=== PATIENT | male | born 1980 | race Caucasian/White ===

== ENCOUNTER 2017-07-15 17:29 | Emergency (ER) | payer MEDICAID, SELFPAY ==
[2017-07-15 17:29] VITALS: BP 138/90; PULSE 105; RESP 18; TEMP 37.2; O2SAT 99; BMI 29.5
--- NOTE | 2017-07-15 17:43 | CT_ITS ---
STUDY: CT BRAIN WITHOUT CONTRAST REASON FOR EXAM: Male, 36 years old. Dizziness RADIATION DOSAGE (If Supplied By Facility): CTDIvol = ( 44.99 ) mGy, DLP = ( 779.24 ) mGycm TECHNIQUE: Transaxial CT imaging of the brain was performed without administration of intravenous contrast material. Individualized dose optimization techniques were used for this CT. COMPARISON: None. FINDINGS: Normal soft tissue structures. Normal calvarium. There is mild cerebral atrophy with widening of the extra-axial spaces and ventricular dilatation. There are areas of decreased attenuation within the white matter tracts of the supratentorial brain, consistent with microvascular disease changes. Normal basal ganglia and thalami. Normal brainstem. Normal cerebellum. There is no intracranial hemorrhage. There are no findings of an acute ischemic infarction. Normal visualized paranasal sinuses. CT/Brain/Head without Contrast IMPRESSION: Chronic involutional changes of the brain. No hemorrhage. Electronically Signed: Cl Cifuentes MD at 18:39 EDT , Service support ,
--- NOTE | 2017-07-15 17:44 | EKG12_ITS ---
Test Reason : DIZZINESS Blood Pressure : / mmHG Vent. Rate : 082 BPM Atrial Rate : 082 BPM P-R Int : 152 ms QRS Dur : 098 ms QT Int : 362 ms P-R-T Axes : 029 082 054 degrees QTc Int : 422 ms Normal sinus rhythm Poor R wave progression Confirmed by DEENA NORRIS, CORNELL ([id number]), graphic editor LEE RG ([id number]) on 07/19/2017 10:24:05 AM Referred By: NARENDRA Confirmed By:CORNELL SHAFFER MD
--- NOTE | 2017-07-15 17:45 | ED.DCSUM_ITS ---
- ER Visit Summary Date of Service: 07/15/17 Chief Complaint: Dizziness History of Present Illness: The patient is a 36 M resents to the emergency department with 1 month of intermittent dizziness. The patient describes the sensation of motion and near syncope. He states it is worse in the morning and then after he eats lunch. He states that he has tried to adjust his diet but it does not seem to change. He has been working outside a lot and feels made this may be contributing to it. He has had some increased urination at night, but denies any increased thirst or visual change. The patient does have a history of SVT was ablated at 11 years old. He states at times, he will be having some palpitations but does not feel like his heart is racing. He denies being short of breath. He has had no fevers or chills. He denies weight loss or night sweats. Physical Examination: Vital signs reviewed General: Well-nourished, well-developed Head: Normocephalic, atraumatic Eyes: Pupils equal and reactive, extraocular muscles intact Neck, supple, no lymphadenopathy Heart: Regular rate and rhythm Respiratory: No distress, clear bilaterally Abdomen: Soft, nontender, nondistended, no peritoneal signs Back: Nontender Extremities: Nontender, no edema, no cords Skin: Normal color no rash Neuro: Alert and oriented, no focal or lateralizing deficits Test Results: [] Emergency Department Course and Treatment: Presents with intermittent dizziness. He has a normal neurologic examination. He has no ataxia. His normal gait. With his history of prior SVT, I did obtain an EKG. There is no WPW, prolonged QT, or arrhythmia. Screening labs are unremarkable. Head CT shows chronic change, but no acute or normalities. In review of the patient, he states that he was told when he was in [facility] a year ago that he may have sleep apnea. This may be contributing to this. At this time, I do not see a dangerous cause. I do feel the patient is safe for outpatient therapy. He will be given new PCP to follow-up with. The patient be discharged home. Treatment Plan: [] Disposition: Charge Impression: 1. Dizziness 2. Near syncope This note was generated with [employer] software. It may contain incorrect words, spelling, and punctuation that were not noted in review of the chart prior to signing ED Disposition - Plan for ED Patient: Chief Complaint: Dizziness Instructions: ED Dizziness [facility] Referrals: Tip Kaba MD [STAFF PHYSICIAN] -
[2017-07-15] MEDS: 0.9% Normal Saline 1,000 ML 1000 ML IV (18:09)
[2017-07-15 18:34] LABS: ALB/GLOB Ratio 1.3 RATIO (0.9-2.4); AST(SGOT) 16 U/L (15-37); Alanine Aminotransfer ALT/SGPT 27 U/L (16-61); Albumin, Serum 4.3 g/dL (3.2-5.0); Alkaline Phosphatase 43 U/L (45-117); Anion Gap 8 (5-15); BUN 13 mg/dL (7-18); BUN/Creat Ratio 10.9 RATIO (10-20); Calcium,Total 8.9 mg/dL (8.5-10.1); Chloride 105 mmol/L (98-107); Creatinine, Serum 1.19 mg/dL (0.70-1.30); EST Glomerular Filtration Rate 73 mL/min (>60); Est Glom Filt Rate - Afr Amer 88 mL/min (>60); Estimated Creatinine Clearance 93.29 ml/min; Globulin 3.2 g/dL (2.2-4.2); Glucose 99 mg/dL (74-106); Protein, Total 7.5 g/dL (6.4-8.2); Sodium Level 140 mmol/L (136-145)
[2017-07-15 18:53] LABS: Eosinophils% 2.2 % (0-5); Hematocrit 45.1 % (40-54); Hemoglobin 15.9 g/dl (13.0-16.5); Lymphocyte % 32.2 % (19-41); Mean Corp Hgb Conc 35.3 g/gl (32-36); Mean Corpuscular Hgb 31.9 pg (27.0-32.0); Mean Corpuscular Volume 90.4 fL (80-94); Mean Platelet Vol. 10.1 fl (6.2-12.0); Monocyte% 5.1 % (0-10); Neutrophil % 60.1 % (47-70); Platelet Count 235 K/mm3 (150-450); RBC Distribution Width CV 12.1 % (11.6-14.6); RBC Distribution Width SD 39.6 fl (35.1-43.9); Red Blood Count 4.99 M/mm3 (4.6-6.2); White Blood Count 9.7 K/mm3 (4.4-11.0)
[2017-07-15 18:54] LABS: Absolute Lymphocyte Count 3.12 X10^3/ul (0.83-4.51); Absolute Neutrophil Count 5.8 X10^3/uL (2.0-7.7); Basophil# 0.01 X10^3/uL; Basophil% 0.1 % (0-1); Eosinophil# 0.21 X10^3/uL; Lymphocyte # 3.12 X10^3/ul (4.0); Monocyte# 0.49 X10^3/uL; Neutrophil # 5.83 X10^3/uL (2.7-7.7)
[2017-07-15 18:55] LABS: POSITIVE COUNT NO; POSITIVE DIFFERENTIAL NO; POSITIVE MORPHOLOGY NO
[2017-07-15 19:26] VITALS: BP 134/103; PULSE 76; RESP 19; O2SAT 98
--- NOTE | 2017-07-15 19:26 | ED.RN ---
REVIEWED D/C INSTRUCTIONS, FOLLOW UP CARE, AND S/S THAT WOULD WARRANT A RETURN TO THE ED WITH PT. PT VERBALIZED AN UNDERSTANDING AND DENIES FURTHER QUESTIONS FOR THIS RN. PT SKIN P/W/D, REPS EVEN AND UNLABORED, PT A&O X 3, NO DISTRESS NOTED. PT AMBULATED OUT OF ED, GAIT STEADY.
== END 2017-07-15 19:27 | disposition home or self-care (01) ==
LOC: ED 18:34
PROVIDERS: Emergency Provider Emergency Medicine
DX: R42 Dizziness and giddiness (principal); R55 Syncope and collapse; Z86.79 Personal history of other diseases of the circulatory system
CPT/HCPCS: 70450; 80053; 85025; 93005; 96360; 99284; J7030; A4216

== ENCOUNTER 2018-07-30 21:53 | Emergency (ER) | payer MEDICAID, SELFPAY ==
[2018-07-30 21:53] VITALS: BP 131/91; PULSE 100; RESP 18; TEMP 36.4; O2SAT 99; BMI 29.0
--- NOTE | 2018-07-30 22:07 | RAD_ITS ---
STUDY: X-RAY - RIGHT HAND, ATTENTION FOURTH FINGER REASON FOR EXAM: Male, 37 years old. Crush injury. TECHNIQUE: 3 view(s) of the finger were obtained. COMPARISON: None. FINDINGS: There is a nondisplaced fracture of the tuft of the fourth distal phalanx. No angulation. There is a subacute, oblique fracture of the proximal phalanx of the fourth digit, with 1 to 2 mm displacement. There is no angulation. There is no additional fracture. Joint spaces are well-maintained. RAD/Finger(s) Min 2 Views IMPRESSION: 1. Acute, nondisplaced tuft fracture of the fourth digit. 2. Subacute fracture of the fourth proximal phalanx. Electronically Signed: Zee Garcia MD at 22:38 EDT Tel , Service support ,
--- NOTE | 2018-07-30 22:11 | ED.DCSUM_ITS ---
History of Present Illness Chief Complaint: Upper Extremity Injury Informant: Patient Occurred: Today, Hours - 1 Mechanism/Context: Injury - caught in dumpster lid Context: Sudden Onset Timing: Continuous Quality of Pain: Aching Location: right ring finger Current Severity: Moderate Maximum Severity: Severe Worsened by: moving, palpation Relieved by: remaining still Associated Symptoms: Loss of Funtion - can't straighten. Negative for: Parast hesia, Weakness Narrative: Unable to straighten his finger after the injury. Pain is worst at the distal phalanx. Past Medical History - Allergies and Home Meds Allergies/Adverse Reactions: Allergies No Known Allergies Allergy (Verified 07/15/17 17:31) Primary Care Physician: Care Physician,No Primary [Primary Care Provider] - Smoking Status: Current every day smoker Review of Systems Musculoskeletal: Reports: Swelling, Extremity Pain Skin: Denies: Abscess, Wounds Neurological: Denies: Weakness, Numbness Physical Exam Vital Signs/Narrative: Vital Signs Temp Pulse Resp BP Pulse Ox 07/30/18 21:53 97.5 F L 100 18 131/91 H 99 Inital Vital Signs reviewed: Yes Right Hand: Deformity - swan neck deformity -- unable to straighten R ring finger layo at DIPJ; decreased prominence w/o tenderness of dorsal MCPJ., Limited ROM - R ring finger. FDS, FDP intact, but not extensor. +subungual hematoma and distal phalanx is very tender. General: Well nourished, Well developed Head: Normocephalic, Atraumatic Skin: Trauma - right ring f. subungual hematoma; skin / nail intact, - - Multiple healing abrasions throughout both lower extremities without signs of lymphangitis or abscess. Neurological: Alert, Oriented x3, Cranial nerves II-XII grossly intact, Normal Strength, Normal Sensation, Normal Gait Psychological: Normal affect, Normal Mood Diagnostic/Tx/Re-eval Clinical Impression(s) from Imaging Studies Finger X-Ray 07/30/18 22:07 IMPRESSION: 1. Acute, nondisplaced tuft fracture of the fourth digit. 2. Subacute fracture of the fourth proximal phalanx. Electronically Signed: Zee Garcia MD at 22:38 EDT Tel , Service support , - Medical Decision Making X-rays show displaced oblique fracture of the proximal phalanx in the nondisplaced fracture of the tuft. These are closed fractures. We discussed trephinating his subungual hematoma which she was amenable to. I did this with a high temperature electrocautery device, which was successful in draining liquid blood. It was dressed in a sterile fashion and he was splinted by myself. Neurovascularly intact distally after placement. He will follow-up with orthopedics as an outpatient. No need for antibiotics. We did update his tetanus, he has not had a shot in 10 years and he has abrasions all over his legs from a new pet squirrel that was wild. Procedures - Upper Extremity Splints Upper Extremity Splint: Alumifoam - To right ring finger in extension Splint Fabrication: Fabricated Location: Right - Ring finger. Neurovascularly intact distally after placement. Procedure(s): Nail trephination -- prepped with Betadine, gently trephinated over subungual hematoma with high-temperature electrocautery device with immediate drainage of blood. No complications. Tolerated well. Bandage placed. ED Disposition - Plan for ED Patient: Disposition: Home or Assisted Living Diagnosis: Closed fracture of proximal phalanx of right ring finger, Fracture of distal phalanx of right ring finger, Subungual hematoma of right ring finger, Injury of extensor tendon of right hand, Tetanus-diphtheria (Td) vaccination Instructions: ED Fx Finger Closed, Subungual Hematoma, ED Rupture Tendon Finger Referrals: Brittnee Zamarripa DO [STAFF PHYSICIAN] - (Call for appointment as soon as possible)
[2018-07-31] MEDS: Diphth,Pertuss(Acell),Tet Vac 0.5 ML Vial IM (00:15)
[2018-07-31] MEDS: Acetaminophen 500 MG Tablet 1000 MG PO (00:16)
[2018-07-31 00:37] VITALS: PULSE 90; RESP 18; O2SAT 97
== END 2018-07-31 00:38 | disposition home or self-care (01) ==
PROVIDERS: Emergency Provider Emergency Medicine
DX: S62.664A Nondisplaced fracture of distal phalanx of right ring finger, initial encounter for closed fracture (principal); S62.644A Nondisplaced fracture of proximal phalanx of right ring finger, initial encounter for closed fracture; S60.141A Contusion of right ring finger with damage to nail, initial encounter; S66.304A Unspecified injury of extensor muscle, fascia and tendon of right ring finger at wrist and hand level, initial encounter; Z23 Encounter for immunization; F17.200 Nicotine dependence, unspecified, uncomplicated; W23.0XXA Caught, crushed, jammed, or pinched between moving objects, initial encounter; Y93.89 Activity, other specified; Y92.89 Other specified places as the place of occurrence of the external cause; Y99.8 Other external cause status
CPT/HCPCS: 11740; 29130; 73140; 90471; 90715; 99283

== ENCOUNTER 2018-08-07 15:17 | Outpatient (RCR) | payer MEDICAID, SELFPAY ==
[2018-08-07 13:45] VITALS: BMI 29.0
--- NOTE | 2018-08-12 10:21 | HP.OTEVAL ---
Patient's Visit Information WILMER LEBLANC is a 37 year old M, referred to Occupational Therapy by Brittnee Zamarripa DO, with a diagnosis of Right RF fx. Date of Evaluation: 08/07/18 Occupational Therapist: Cornelia Smith, PRICE/Noelle, CHT - Subjective Subjective: This 37 year old male was seen for initial OT eval with dx of right RF Fx. pt is in need of custom orthosis to allow protection and suppport while fx is healing. pt denies numbness or pain during this session. - ROM ROM Comments: pt demo swelling of injured finger- and functional ROM at this time- pt need custom orthosis to allow for healing of fx. - Strength Strength Comments: Not tested due to healing fx - Quick DASH-Disab of Arm,Shoulder& Hand Quick DASH Score: 45.0000 - Goals Goal:: pt will demo ind. donning/doffing of custom orthosis by end of 1st session . pt will demo understanding of orthosis precautions and use by end of 1st session - Rehabilitation General Assessment: Pt demo with need of custom orthosis to allow for protection and support of healing fx. Today pt was farzaneh custom orthosis, ed. on use and care and to return to clinic if orthosis needes adj. Pt demo understanding and agree to POC. Rehabilitation Potential: Good - Anticipated Interventions Anticipated Interventions: Home Program Other Interventions: orthosis use - Visit Plan TEXT: Thank you for the opportunity to evaluate your patient. For Medicare and Medicare HMO plans, please review the plan of care and approve it. It will need to be FAXED BACK to us at [phone] for Medicare purposes. Please let me know if there are questions or concerns regarding this plan of care. Physician Signature: Date:
--- NOTE | 2018-11-04 10:19 | HP.OT.NRP ---
HP - Discharge Summary - Patient Information WILMER LEBLANC was seen in my office for initial evaluation on 08/07/18. The following Plan of Care was established for this patient: - Anticipated Interventions Anticipated Interventions: Home Program Other Interventions: orthosis use This patient was last seen in our office 08/07/18. Pertinent comments regarding their Occupational therapy will appear below: pt seen for initial OT eval only for orthosis farzaneh. pt d/c At this point I will be discontinuing this patient from occupational therapy. I would be happy to see this patient again in the future if found appropriate by the physician. Thank you! Cornelia Smith, OTR/L, CHT
== END 2018-08-07 19:00 | disposition home or self-care (01) ==
LOC: OT 15:17
PROVIDERS: Referring Provider Orthopaedic Surgery; Visit Provider Orthopaedic Surgery
DX: M20.011 Mallet finger of right finger(s) (principal); S62.634D Displaced fracture of distal phalanx of right ring finger, subsequent encounter for fracture with routine healing; S62.614D Displaced fracture of proximal phalanx of right ring finger, subsequent encounter for fracture with routine healing
CPT/HCPCS: 97166; 97760

== ENCOUNTER → 2018-08-07 | Outpatient (CLI) | payer MEDICAID, SELFPAY ==
[2018-08-07 13:45] VITALS: BMI 29.0
--- NOTE | 2018-08-07 14:11 | RAD_ITS ---
STUDY: X-RAY - RIGHT HAND, ATTENTION FOURTH FINGER REASON FOR EXAM: Fracture follow-up. TECHNIQUE: 3 view(s) of the finger were obtained. COMPARISON: Radiographs 07/30/2018. FINDINGS: There is chronic healed fracture deformity of the fourth metacarpal neck as on the prior study. Normal metacarpophalangeal joint. There is a healing nondisplaced fracture of the fourth proximal phalanx as on the prior study. Normal middle phalanx. There is no interval change of the ungual tuft fracture of the distal phalanx. Normal proximal interphalangeal joint. Normal distal interphalangeal joint. RAD/Finger(s) Min 2 Views IMPRESSION: No interval change of recent ungual tuft fracture of the fourth distal phalanx. Healing nonacute fracture of the fourth proximal phalanx. Chronic healed fracture deformity of the fourth metacarpal neck. Electronically Signed: Rambo Gonzalez MD at 13:25 EDT Tel , Service support ,
--- NOTE | 2018-08-07 14:35 | RAD_ITS ---
STUDY: X-RAY - RIGHT HAND REASON FOR EXAM: Fourth proximal phalanx fracture, fourth metacarpophalangeal joint deformity. TECHNIQUE: 3 view(s) of the hand. COMPARISON: Radiographs 07/30/2018. FINDINGS: Normal radiocarpal articulation. Normal distal radioulnar joint. Normal visualized carpal bones. Normal carpal articulations Normal carpometacarpal articulation of the thumb. Normal second through fifth carpometacarpal joints. There is chronic healed fracture deformity of the fourth metacarpal neck. Normal metacarpophalangeal joint of the thumb. Normal interphalangeal joint of the thumb. Normal proximal and distal phalanges of the thumb. Normal metacarpophalangeal joints of the second through fifth fingers. Normal proximal and distal interphalangeal joints of the second through fifth fingers. There is a nondisplaced healing fracture of the fourth proximal phalanx as on the prior study. There is a nondisplaced ungual tuft fracture of the fourth digit as on the prior study The soft tissue structures are unremarkable. RAD/Hand Min 3 Views IMPRESSION: No interval change of the recent ungual tuft fracture of the fourth phalanx. No interval change of the nonacute healing fracture of the fourth proximal phalanx. Chronic healed fracture deformity of the fourth metacarpal neck. Electronically Signed: Rambo Gonzalez MD at 13:26 EDT Tel , Service support ,
== END | disposition home or self-care (01) ==
LOC: HPRAD 14:11
PROVIDERS: Referring Provider Orthopaedic Surgery; Visit Provider Orthopaedic Surgery
DX: M20.011 Mallet finger of right finger(s) (principal); S62.604A Fracture of unspecified phalanx of right ring finger, initial encounter for closed fracture; S62.644A Nondisplaced fracture of proximal phalanx of right ring finger, initial encounter for closed fracture; S62.664B Nondisplaced fracture of distal phalanx of right ring finger, initial encounter for open fracture; S62.634D Displaced fracture of distal phalanx of right ring finger, subsequent encounter for fracture with routine healing; S62.614D Displaced fracture of proximal phalanx of right ring finger, subsequent encounter for fracture with routine healing
CPT/HCPCS: 73130; 73140; 97166; 97760

== ENCOUNTER → 2018-08-26 | Outpatient (CLI) | payer MEDICAID, SELFPAY ==
[2018-08-07 13:45] VITALS: BMI 29.0
--- NOTE | 2018-08-26 09:20 | RAD_ITS ---
STUDY: X-RAY - RIGHT HAND REASON FOR EXAM: Fracture. TECHNIQUE: 3 view(s) of the hand. COMPARISON: Radiographs 08/07/2018 and 07/30/2018. FINDINGS: Normal radiocarpal articulation. Normal distal radioulnar joint. Normal visualized carpal bones. Normal carpal articulations Normal carpometacarpal articulation of the thumb. Normal second through fifth carpometacarpal joints. There is chronic healed fracture deformity of the fourth metacarpal neck. Normal metacarpophalangeal joint of the thumb. Normal interphalangeal joint of the thumb. Normal proximal and distal phalanges of the thumb. Normal metacarpophalangeal joints of the second through fifth fingers. Normal proximal and distal interphalangeal joints of the second through fifth fingers. There is a nondisplaced healing fracture of the fourth proximal phalanx. There is a nondisplaced ungual tuft fracture of the fourth distal phalanx with mild bone resorption indicating healing. The soft tissue structures are unremarkable. RAD/Hand Min 3 Views IMPRESSION: Healing recent ungual tuft fracture of the fourth digit. No interval change of the nonacute healing fracture of the fourth proximal phalanx. Chronic healed fracture deformity of the fourth metacarpal neck. Electronically Signed: Rambo Gonzalez MD at 12:15 EDT Tel , Service support ,
== END | disposition home or self-care (01) ==
LOC: HPRAD 09:20
PROVIDERS: Referring Provider Orthopaedic Surgery; Visit Provider Orthopaedic Surgery
DX: S62.91XA Unspecified fracture of right hand, initial encounter for closed fracture (principal)
CPT/HCPCS: 73130

== ENCOUNTER → 2018-09-16 | Outpatient (CLI) | payer MEDICAID, SELFPAY ==
[2018-09-16 13:15] VITALS: BMI 29.0
--- NOTE | 2018-09-16 13:16 | RAD_ITS ---
STUDY: X-RAY - RIGHT HAND REASON FOR EXAM: Fracture follow-up. TECHNIQUE: 3 view(s) of the hand. COMPARISON: Radiographs 08/26/2018. FINDINGS: Normal radiocarpal articulation. Normal distal radioulnar joint. Normal visualized carpal bones. Normal carpal articulations Normal carpometacarpal articulation of the thumb. Normal second through fifth carpometacarpal joints. There is chronic healed fracture deformity of the fourth metacarpal neck. Normal metacarpophalangeal joint of the thumb. Normal interphalangeal joint of the thumb. Normal proximal and distal phalanges of the thumb. Normal metacarpophalangeal joints of the second through fifth fingers. Normal proximal and distal interphalangeal joints of the second through fifth fingers. There is osteopenia of the phalanges of the fourth digit with a nondisplaced fracture of the ungual tuft without interval change. There is a nondisplaced healing fracture of the fourth proximal phalanx without interval change. The soft tissue structures are unremarkable. RAD/Hand Min 3 Views IMPRESSION: No interval change of the recent fracture of the ungual tuft of the fourth digit. No interval change of the nonacute healing fracture of the fourth proximal phalanx. Chronic healed fracture deformity of the fourth metacarpal neck. Electronically Signed: Rambo Gonzalez MD at 14:35 EDT Tel , Service support ,
--- NOTE | 2018-09-16 13:31 | RAD_ITS ---
STUDY: X-RAY - LEFT HAND, ATTENTION INDEX FINGER REASON FOR EXAM: Index finger pain, fall last week. TECHNIQUE: 3 view(s) of the finger were obtained. COMPARISON: None. FINDINGS: Normal visualized metacarpal. Normal metacarpophalangeal joint. Normal proximal phalanx. Normal middle phalanx. Normal distal phalanx. Normal proximal interphalangeal joint. Normal distal interphalangeal joint. There is soft tissue swelling. RAD/Finger(s) Min 2 Views IMPRESSION: Soft tissue swelling. No demonstrated fracture. Electronically Signed: Rambo Gonzalez MD at 13:55 EDT Tel , Service support ,
--- NOTE | 2018-09-16 13:31 | RAD_ITS ---
STUDY: X-RAY - LEFT ELBOW REASON FOR EXAM: Male, 38 years old. Left week. Pain. TECHNIQUE: 2 view(s) of the elbow. COMPARISON: None. FINDINGS: Normal visualized humerus, radius and ulna. Normal radiocapitellar and ulnotrochlear articulations. The soft tissue structures are unremarkable. RAD/Elbow 2 Views IMPRESSION: Normal x-ray examination of the elbow. Electronically Signed: Stevenson Quinones MD at 14:57 EDT , Service support ,
== END | disposition home or self-care (01) ==
LOC: HPRAD 13:15
PROVIDERS: Referring Provider Orthopaedic Surgery; Visit Provider Orthopaedic Surgery
DX: S62.91XA Unspecified fracture of right hand, initial encounter for closed fracture (principal); M79.642 Pain in left hand; M25.522 Pain in left elbow
CPT/HCPCS: 73070; 73130; 73140